=== PATIENT | female | born 1930 | race Caucasian/White ===

== ENCOUNTER 2018-11-11 16:14 | Inpatient (IN) | payer OTHER, MEDICAID ==
[~2018-11-11] VITALS: Ht 162.6 cm; Wt 63.7 kg
[~2018-11-11 16:14] MED LIST: ASPI-1155 PO; FURO-150 PO; L.RH1CAP PO; LIP80 PO; LOSA25TA3 PO; MAGN400C3 PO; MELA3TAB PO; METO-442 PO; ONDA4TAB5 PO; TRAM50TA92 PO
[2018-11-11 16:35] VITALS: BP_SYST 126
[2018-11-11] MEDS ORDERED: VANCOMYCIN HCL 1,000 MG in NS 250 ML IV ONE ×2 (17:00→18:30)
[2018-11-11] MEDS ORDERED: VANCOMYCIN HCL 1000 MG/VIAL IV ONE (17:17)
[2018-11-11 17:36] LABS: ANION GAP 16 (5-15); CALCIUM 9.4 mg/dL (8.4-11.0); CHLORIDE 104 mmol/L (98-107); CREATININE 1.02 mg/dL (0.55-1.30); GLUCOSE 117 mg/dL (70-99); POTASSIUM 4.1 mmol/L (3.5-5.1); SODIUM SERUM 139 mmol/L (136-145); UREA NITROGEN, BLOOD 30 mg/dL (8-21)
[2018-11-11 17:39] LABS: HEMATOCRIT 41.6 % (36-48); HEMOGLOBIN 14.1 g/dL (12.0-16.0); MEAN CORPUSCULAR HEMOGLOBIN 32 pg (27-31); MEAN CORPUSCULAR HGB CONC 34 % (32-36); MEAN CORPUSCULAR VOLUME 94 fL (79.0-98.0); RED BLOOD CELL COUNT(AUTO) 4.45 MIL/uL (4.2-6.2); WHITE BLOOD COUNT (AUTO) 6.4 K/uL (4.8-10.8)
[2018-11-11 17:40] LABS: PLATELET COUNT (AUTO) 96 K/uL (130-430); RED CELL DISTRIBUTION WIDTH 14.2 % (9.0-15.0)
[2018-11-11 17:42] LABS: ALANINE AMINOTRANSFERASE 390 U/L (12-78); ALBUMIN 3.3 g/dL (3.4-4.8); ASPARTATE AMINOTRANSFERASE 498 U/L (10-37); TOTAL BILIRUBIN 1.5 mg/dL (0.0-1.0)
[2018-11-11 17:56] LABS: BAND % (MANUAL) 43 % (0-6); BASOPHILS % (MANUAL) 0 % (0-2); EOSINOPHILS % (MANUAL) 1 % (0-7); LYMPHOCYTES % (MANUAL) 4 % (20-46); MONOCYTES % (MANUAL) 1 % (0-11)
[2018-11-11 17:57] LABS: BILIRUBIN,URINE NEGATIVE (NEGATIVE); BLOOD, URINE 3+ (NEGATIVE); CLARITY/URINE CLOUDY (CLEAR); COLOR,URINE RED (YELLOW); GLUCOSE,URINE NEGATIVE (NEGATIVE); KETONES,URINE NEGATIVE (NEGATIVE); LEUKOCYTE ESTERASE ,URINE TRACE (NEGATIVE); NITRITE, URINE NEGATIVE (NEGATIVE); PH,URINE 8.5 (5.0-8.0); PROTEIN URINE 3+ (NEGATIVE); UROBILINOGEN,URINE 0.2 (0.2-1.0)
[2018-11-11] MEDS ORDERED: GUAI118.5 PO (18:02)
[2018-11-11] MEDS ORDERED: ACET325T53 PO (18:02)
[2018-11-11] MEDS ORDERED: dulcolax supp PR (18:02)
[2018-11-11] MEDS ORDERED: NA P133E41 RC (18:02)
[2018-11-11] MEDS ORDERED: CALC-823 PO (18:02)
[2018-11-11] MEDS ORDERED: ASCO500T20 PO (18:02)
[2018-11-11] MEDS ORDERED: POLY15DR56 OP (18:02)
[2018-11-11] MEDS ORDERED: MULT1CAP34 PO (18:02)
[2018-11-11] MEDS ORDERED: METO25TA6 PO (18:02)
[2018-11-11] MEDS ORDERED: MOM PO (18:02)
[2018-11-11] MEDS ORDERED: FERR325T30 PO (18:02)
[2018-11-11] MEDS ORDERED: DOCU-144 PO (18:02)
[2018-11-11 18:13] LABS: RBC,URINE >100 /HPF (0-3)
[2018-11-11 18:14] LABS: BACTERIA,URINE FEW /HPF (None Seen); MUCUS,URINE None Seen /LPF (None Seen); WBC,URINE 0-3 /HPF (0-3)
[2018-11-11] MEDS ORDERED: NACL 0.9% 1,000 ML IV ONE ×2 (18:30→20:15)
[2018-11-11] MEDS ORDERED: ONDANSETRON HCL 4 MG/2 ML VIAL IVP ONE (18:30)
[2018-11-12] MEDS ORDERED: ONDANSETRON HCL 4 MG/2 ML VIAL IVP ONE
[2018-11-12 00:44] VITALS: BP_SYST 97
[2018-11-12] MEDS: NACL 0.9% 1,000 ML IV SCH ×2 (01:29→10:11)
[2018-11-12] MEDS ORDERED: ACETAMINOPHEN 325 MG TABLET PO PRN (02:00)
[2018-11-12] MEDS: metroNIDAZOLE 500 mg/NS 100 ML IV SCH ×4 (02:19→22:29)
[2018-11-12] MEDS ORDERED: metroNIDAZOLE 500 mg/NS 200 ML IV ONE (02:25)
[2018-11-12 02:45] VITALS: BP_SYST 105
[2018-11-12] MEDS ORDERED: metroNIDAZOLE 500 mg/NS 100 ML IV SCH (06:00)
[2018-11-12 06:22] LABS: ANION GAP 13 (5-15); CALCIUM 7.8 mg/dL (8.4-11.0); CHLORIDE 108 mmol/L (98-107); CREATININE 1.67 mg/dL (0.55-1.30); GLUCOSE 98 mg/dL (70-99); POTASSIUM 3.6 mmol/L (3.5-5.1); SODIUM SERUM 142 mmol/L (136-145); UREA NITROGEN, BLOOD 36 mg/dL (8-21)
[2018-11-12 06:29] LABS: ALANINE AMINOTRANSFERASE 306 U/L (12-78); ALBUMIN 2.4 g/dL (3.4-4.8); ASPARTATE AMINOTRANSFERASE 349 U/L (10-37); TOTAL BILIRUBIN 0.7 mg/dL (0.0-1.0)
[2018-11-12 08:01] LABS: HEMOGLOBIN 10.9 g/dL (12.0-16.0); RED BLOOD CELL COUNT(AUTO) 3.45 MIL/uL (4.2-6.2); WHITE BLOOD COUNT (AUTO) 24.8 K/uL (4.8-10.8)
[2018-11-12 08:03] LABS: BASOPHILS % (AUTO) 0.2 % (0.0-2.0); HEMATOCRIT 32.8 % (36-48); LYMPHOCYTES # (AUTO) 0.5 K/uL (1.0-5.5); LYMPHOCYTES % (AUTO) 2.2 % (20.5-51.5); MEAN CORPUSCULAR HEMOGLOBIN 32 pg (27-31); MEAN CORPUSCULAR HGB CONC 33 % (32-36); MEAN CORPUSCULAR VOLUME 95 fL (79.0-98.0); MONOCYTES # (AUTO) 1.3 K/uL (0.0-1.0); MONOCYTES % (AUTO) 5.2 % (1.7-9.3); NEUTROPHILS # (AUTO) 22.9 K/uL (1.8-7.7); NEUTROPHILS % (AUTO) 92.4 % (40.0-70.0); PLATELET COUNT (AUTO) 75 K/uL (130-430)
[2018-11-12 08:09] VITALS: BP_SYST 97
[2018-11-12] MEDS ORDERED: LEVOFLOXACIN 500 MG/D5W 100 ML IV SCH (09:00)
[2018-11-12] MEDS ORDERED: NACL 0.9% 1,000 ML IV ONE (09:30)
[2018-11-12 09:50] LABS: INR 1.5 (0.8-1.2); PROTHROMBIN TIME 14.7 SECS (9.5-12.5)
[2018-11-12] MEDS ORDERED: MEROPENEM 500 MG in NS 50 ML IV SCH ×2 (11:00→14:00)
[2018-11-12] MEDS ORDERED: MEROPENEM 500 MG in NS 50 ML IV ONE (11:00)
[2018-11-12 12:39] VITALS: BP_SYST 103
[2018-11-12] MEDS: KCL 20 mEq in D5/0.45NS 1000mL 1,000 ML IV SCH (15:24)
[2018-11-12 16:38] VITALS: BP_SYST 132
[2018-11-12] MEDS ORDERED: GLYCOPYRROLATE 0.2 MG/ML VIAL IJ ONE (19:10)
[2018-11-12] MEDS ORDERED: WATER FOR IRRIGATION,STERILE 1,000 ML IRRIG.SOLN IR ONE (19:10)
[2018-11-12] MEDS ORDERED: NS 1000 ML IV.SOLN IV ONE (19:10)
[2018-11-12] MEDS ORDERED: PHENYLEPHRINE HCL 10 MG/ML VIAL (NEOSYNEPHRINE) IV ONE (19:10)
[2018-11-12] MEDS ORDERED: fentaNYL CITRATE/PF 100 MCG/2 ML AMP IVP ONE (19:10)
[2018-11-12] MEDS ORDERED: BUPIVACAINE /EPINEPHRINE/PF 0.25% 30 ML VIAL INJ ONE (19:10)
[2018-11-12] MEDS ORDERED: LABETALOL 100 MG/ 20ML VIAL IVP ONE (19:10)
[2018-11-12] MEDS ORDERED: LR 1,000 ML IV.SOLN IV ONE (19:10)
[2018-11-12] MEDS ORDERED: SEVOFLURANE 15 MIN GAS INH ONE (19:10)
[2018-11-12] MEDS ORDERED: MIDAZOLAM HCL 5 MG/5 ML VIAL IVP ONE (19:10)
[2018-11-12] MEDS ORDERED: PROPOFOL 200MG/ 20ML VIAL (DIPRIVAN) IV ONE (19:10)
[2018-11-12] MEDS ORDERED: ROCURONIUM BROMIDE 10 MG/ML (ZEMURON) IV ONE (19:10)
[2018-11-12 20:00] VITALS: BP_SYST 101
[2018-11-12] MEDS: MEROPENEM 500 MG in NS 50 ML IV SCH (21:01)
[2018-11-13] VITALS (8 sets, daily range): BP systolic 102–156
[2018-11-13] MEDS: KCL 20 mEq in D5/0.45NS 1000mL 1,000 ML IV SCH ×2 (02:52→12:05)
[2018-11-13] MEDS: MEROPENEM 500 MG in NS 50 ML IV SCH ×3 (05:02→22:45)
[2018-11-13] MEDS: metroNIDAZOLE 500 mg/NS 100 ML IV SCH (06:02)
[2018-11-13 07:08] LABS: ALANINE AMINOTRANSFERASE 176 U/L (12-78); ALBUMIN 2.3 g/dL (3.4-4.8); ANION GAP 9 (5-15); CALCIUM 7.5 mg/dL (8.4-11.0); CHLORIDE 109 mmol/L (98-107); CHOLESTEROL 95 mg/dL (<200); CREATININE 1.28 mg/dL (0.55-1.30); GLUCOSE 120 mg/dL (70-99); HDL CHOLESTEROL 28 mg/dL (>55); LDL CHOLESTEROL 43 mg/dL (<100); LIPASE 81 U/L (73-393); POTASSIUM 3.7 mmol/L (3.5-5.1); SODIUM SERUM 139 mmol/L (136-145); THYROID STIMULATING HORMONE 0.35 uIu/mL (0.34-4.82); TOTAL BILIRUBIN 0.6 mg/dL (0.0-1.0); TRIGLYCERIDES 67 mg/dL (30-150); UREA NITROGEN, BLOOD 33 mg/dL (8-21)
[2018-11-13 07:14] LABS: ASPARTATE AMINOTRANSFERASE 166 U/L (10-37)
[2018-11-13 08:09] LABS: WHITE BLOOD COUNT (AUTO) 24.2 K/uL (4.8-10.8)
[2018-11-13 08:10] LABS: BASOPHILS % (AUTO) 0.2 % (0.0-2.0); EOSINOPHILS % (AUTO) 0.4 % (0.0-4.0); HEMATOCRIT 28.9 % (36-48); HEMOGLOBIN 9.7 g/dL (12.0-16.0); LYMPHOCYTES # (AUTO) 0.6 K/uL (1.0-5.5); LYMPHOCYTES % (AUTO) 2.6 % (20.5-51.5); MEAN CORPUSCULAR HEMOGLOBIN 32 pg (27-31); MEAN CORPUSCULAR HGB CONC 34 % (32-36); MEAN CORPUSCULAR VOLUME 95 fL (79.0-98.0); MONOCYTES # (AUTO) 1.2 K/uL (0.0-1.0); MONOCYTES % (AUTO) 4.9 % (1.7-9.3); NEUTROPHILS # (AUTO) 22.2 K/uL (1.8-7.7); PLATELET COUNT (AUTO) 68 K/uL (130-430); RED BLOOD CELL COUNT(AUTO) 3.04 MIL/uL (4.2-6.2)
[2018-11-13 08:11] LABS: EOSINOPHILS # (AUTO) 0.1 K/uL (0.0-0.4)
[2018-11-13 10:44] LABS: NEUTROPHILS % (AUTO) 91.9 % (40.0-70.0)
[2018-11-13] MEDS ORDERED: IOHEXOL 50 ML IV ONE (19:27)
[2018-11-13] MEDS ORDERED: fentaNYL CITRATE/PF 100 MCG/2 ML AMP IVP PRN ×2 (20:45)
[2018-11-13] MEDS ORDERED: ONDANSETRON HCL 4 MG/2 ML VIAL IVP PRN (20:45)
[2018-11-13] MEDS: LR 1,000 ML IV SCH (22:45)
[2018-11-13] MEDS: MORPHINE 4 MG/ML INJ. SYRINGE IVP PRN (23:57)
[2018-11-14] VITALS (18 sets, daily range): BP systolic 95–167
[2018-11-14] MEDS: MEROPENEM 500 MG in NS 50 ML IV SCH ×3 (05:14→23:04)
[2018-11-14 06:43] LABS: ALANINE AMINOTRANSFERASE 135 U/L (12-78); ALBUMIN 2.2 g/dL (3.4-4.8); ANION GAP 7 (5-15); ASPARTATE AMINOTRANSFERASE 106 U/L (10-37); CHLORIDE 110 mmol/L (98-107); CREATININE 1.04 mg/dL (0.55-1.30); GLUCOSE 118 mg/dL (70-99); POTASSIUM 4.5 mmol/L (3.5-5.1); SODIUM SERUM 140 mmol/L (136-145); TOTAL BILIRUBIN 0.4 mg/dL (0.0-1.0); UREA NITROGEN, BLOOD 27 mg/dL (8-21)
[2018-11-14 07:59] LABS: HEMOGLOBIN 9.7 g/dL (12.0-16.0); RED BLOOD CELL COUNT(AUTO) 3.11 MIL/uL (4.2-6.2); WHITE BLOOD COUNT (AUTO) 19.6 K/uL (4.8-10.8)
[2018-11-14 08:00] LABS: HEMATOCRIT 29.7 % (36-48); MEAN CORPUSCULAR HEMOGLOBIN 31 pg (27-31); MEAN CORPUSCULAR HGB CONC 33 % (32-36); MEAN CORPUSCULAR VOLUME 95 fL (79.0-98.0); PLATELET COUNT (AUTO) 80 K/uL (130-430); RED CELL DISTRIBUTION WIDTH 15.3 % (9.0-15.0)
[2018-11-14 08:01] LABS: LYMPHOCYTES % (AUTO) 4.7 % (20.5-51.5)
[2018-11-14 08:02] LABS: BASOPHILS # (AUTO) 0.1 K/uL (0.0-0.2); BASOPHILS % (AUTO) 0.4 % (0.0-2.0); EOSINOPHILS # (AUTO) 0.4 K/uL (0.0-0.4); EOSINOPHILS % (AUTO) 1.8 % (0.0-4.0); LYMPHOCYTES # (AUTO) 0.9 K/uL (1.0-5.5); MONOCYTES # (AUTO) 0.6 K/uL (0.0-1.0); MONOCYTES % (AUTO) 3.1 % (1.7-9.3); NEUTROPHILS # (AUTO) 17.6 K/uL (1.8-7.7)
[2018-11-14] MEDS ORDERED: METOPROLOL TARTRATE 25 MG TABLET PO SCH ×2 (09:00→21:00)
[2018-11-14] MEDS ORDERED: METOPROLOL TARTRATE 25 MG TABLET PO ONE (09:15)
[2018-11-14] MEDS: MORPHINE 4 MG/ML INJ. SYRINGE IVP PRN ×3 (09:33→20:21)
[2018-11-14] MEDS: LR 1,000 ML IV SCH (12:01)
[2018-11-14] MEDS: METOPROLOL TARTRATE 25 MG TABLET PO SCH (20:32)
[2018-11-15] VITALS (7 sets, daily range): BP systolic 127–159
[2018-11-15] MEDS: LR 1,000 ML IV SCH ×2 (01:22→18:46)
[2018-11-15] MEDS: MORPHINE 4 MG/ML INJ. SYRINGE IVP PRN (01:23)
[2018-11-15] MEDS: MEROPENEM 500 MG in NS 50 ML IV SCH ×4 (05:22→21:35)
[2018-11-15 08:29] LABS: ALANINE AMINOTRANSFERASE 108 U/L (12-78); ALBUMIN 2.2 g/dL (3.4-4.8); ANION GAP 7 (5-15); ASPARTATE AMINOTRANSFERASE 59 U/L (10-37); CALCIUM 7.9 mg/dL (8.4-11.0); CHLORIDE 107 mmol/L (98-107); CREATININE 0.75 mg/dL (0.55-1.30); GLUCOSE 84 mg/dL (70-99); POTASSIUM 4.3 mmol/L (3.5-5.1); SODIUM SERUM 136 mmol/L (136-145); TOTAL BILIRUBIN 0.6 mg/dL (0.0-1.0); UREA NITROGEN, BLOOD 25 mg/dL (8-21)
[2018-11-15 08:36] LABS: HEMATOCRIT 32.2 % (36-48); HEMOGLOBIN 10.6 g/dL (12.0-16.0); MEAN CORPUSCULAR VOLUME 95 fL (79.0-98.0); WHITE BLOOD COUNT (AUTO) 12.2 K/uL (4.8-10.8)
[2018-11-15 08:37] LABS: MEAN CORPUSCULAR HEMOGLOBIN 31 pg (27-31); MEAN CORPUSCULAR HGB CONC 33 % (32-36); PLATELET COUNT (AUTO) 105 K/uL (130-430); RED CELL DISTRIBUTION WIDTH 14.6 % (9.0-15.0)
[2018-11-15 08:38] LABS: BASOPHILS # (AUTO) 0.1 K/uL (0.0-0.2); BASOPHILS % (AUTO) 0.5 % (0.0-2.0); EOSINOPHILS # (AUTO) 0.6 K/uL (0.0-0.4); EOSINOPHILS % (AUTO) 4.7 % (0.0-4.0); LYMPHOCYTES # (AUTO) 0.9 K/uL (1.0-5.5); LYMPHOCYTES % (AUTO) 7.4 % (20.5-51.5); MONOCYTES # (AUTO) 0.5 K/uL (0.0-1.0); MONOCYTES % (AUTO) 4.2 % (1.7-9.3); NEUTROPHILS # (AUTO) 10.1 K/uL (1.8-7.7)
[2018-11-15 08:39] LABS: NEUTROPHILS % (AUTO) 83.2 % (40.0-70.0)
[2018-11-15] MEDS: METOPROLOL TARTRATE 25 MG TABLET PO SCH ×2 (08:46→20:06)
[2018-11-16] MEDS: MEROPENEM 500 MG in NS 50 ML IV SCH ×2 (05:25→14:48)
[2018-11-16] MEDS: LR 1,000 ML IV SCH ×2 (05:26→12:15)
[2018-11-16 08:00] VITALS: BP_SYST 125
[2018-11-16] MEDS: METOPROLOL TARTRATE 25 MG TABLET PO SCH (08:15)
[2018-11-16 11:46] VITALS: BP_SYST 125
[2018-11-16 12:23] VITALS: BP_SYST 155
[2018-11-16 16:17] VITALS: BP_SYST 148
[2018-11-16 17:06] VITALS: BP_SYST 148
== END 2018-11-16 18:40 | DRG 853 ==
LOC: SED 16:14 → STU 11-12 00:13 → SIC 11-13 21:34 → SMU 11-14 17:01 → STU 11-14 17:38
PROVIDERS: ADMIT Internal Medicine; ATTEND Internal Medicine
PROC: 0FT44ZZ Resection of Gallbladder, Percutaneous Endoscopic Approach (ICD-10-PCS; principal; 2018-11-13 19:00)
DX: A41.9 Sepsis, unspecified organism (principal); E43 Unspecified severe protein-calorie malnutrition; G93.41 Metabolic encephalopathy; E87.2 Acidosis; K80.00 Calculus of gallbladder with acute cholecystitis without obstruction; N13.6 Pyonephrosis; N17.9 Acute kidney failure, unspecified; D64.9 Anemia, unspecified; D69.6 Thrombocytopenia, unspecified; E78.5 Hyperlipidemia, unspecified; Z96.641 Presence of right artificial hip joint; M19.90 Unspecified osteoarthritis, unspecified site; F03.90 Unspecified dementia, unspecified severity, without behavioral disturbance, psychotic disturbance, mood disturbance, and anxiety; I11.9 Hypertensive heart disease without heart failure; B96.4 Proteus (mirabilis) (morganii) as the cause of diseases classified elsewhere; I48.0 Paroxysmal atrial fibrillation; R65.20 Severe sepsis without septic shock; Z85.828 Personal history of other malignant neoplasm of skin; Z86.73 Personal history of transient ischemic attack (TIA), and cerebral infarction without residual deficits; Z87.891 Personal history of nicotine dependence; Z88.0 Allergy status to penicillin; Z68.24 Body mass index [BMI] 24.0-24.9, adult; Z88.1 Allergy status to other antibiotic agents; Z88.2 Allergy status to sulfonamides; Z88.8 Allergy status to other drugs, medicaments and biological substances; Z79.82 Long term (current) use of aspirin; Z79.899 Other long term (current) drug therapy
CPT/HCPCS: 36415; 71045; 76000; 76700-TC; 78226; 80053; 80061; 81000-TC; 83605; 83690-TC; 83880; 84443-TC; 85007; 85025; 85027; 85610-TC; 87040-TC; 87081; 87086; 87186-TC; 88304; 93005; 93306; 96365; 96366; 96367; 96375; 96376; 97110-GP; 97116-GP; 97530-GP; 99291; A9537; C1727; G0378; J1956; J2185; J2250; J2270; J2370; J2405; J2704; J3010; J3370; J3490; J7030; J7120; Q9967

== ENCOUNTER 2018-11-18 19:54 | Observation (INO) | payer OTHER, MEDICAID ==
[~2018-11-18] VITALS: Ht 162.6 cm; Wt 61.2 kg
[~2018-11-18 19:54] MED LIST changes: +ACET325T53 PO; +ASCO500T20 PO; +CALC-823 PO; +DOCU-144 PO; +FERR325T30 PO; +GUAI118.5 PO; -METO-442 PO; +METO25TA6 PO; +MOM PO; +MULT1CAP34 PO; +NA P133E41 RC; +POLY15DR56 OP; -TRAM50TA92 PO; +dulcolax supp PR
[2018-11-18 20:09] VITALS: BP_SYST 157
[2018-11-18 20:55] LABS: ANION GAP 3 (5-15); CALCIUM 8.1 mg/dL (8.4-11.0); CHLORIDE 106 mmol/L (98-107); CREATININE 0.82 mg/dL (0.55-1.30); GLUCOSE 137 mg/dL (70-99); POTASSIUM 3.2 mmol/L (3.5-5.1); SODIUM SERUM 139 mmol/L (136-145); UREA NITROGEN, BLOOD 16 mg/dL (8-21)
[2018-11-18 20:59] LABS: ALANINE AMINOTRANSFERASE 44 U/L (12-78); ALBUMIN 2.3 g/dL (3.4-4.8); ASPARTATE AMINOTRANSFERASE 27 U/L (10-37); TOTAL BILIRUBIN 0.8 mg/dL (0.0-1.0)
[2018-11-18 21:02] LABS: HEMATOCRIT 32.9 % (36-48); HEMOGLOBIN 11.1 g/dL (12.0-16.0); MEAN CORPUSCULAR VOLUME 94 fL (79.0-98.0); RED BLOOD CELL COUNT(AUTO) 3.48 MIL/uL (4.2-6.2); WHITE BLOOD COUNT (AUTO) 9.1 K/uL (4.8-10.8)
[2018-11-18 21:03] LABS: BASOPHILS % (AUTO) 0.6 % (0.0-2.0); EOSINOPHILS # (AUTO) 0.7 K/uL (0.0-0.4); EOSINOPHILS % (AUTO) 8.2 % (0.0-4.0); LYMPHOCYTES # (AUTO) 1.2 K/uL (1.0-5.5); LYMPHOCYTES % (AUTO) 13.5 % (20.5-51.5); MEAN CORPUSCULAR HEMOGLOBIN 32 pg (27-31); MEAN CORPUSCULAR HGB CONC 34 % (32-36); MONOCYTES # (AUTO) 0.9 K/uL (0.0-1.0); MONOCYTES % (AUTO) 10.1 % (1.7-9.3); NEUTROPHILS # (AUTO) 6.1 K/uL (1.8-7.7); NEUTROPHILS % (AUTO) 67.6 % (40.0-70.0); PLATELET COUNT (AUTO) 173 K/uL (130-430); RED CELL DISTRIBUTION WIDTH 14.9 % (9.0-15.0)
[2018-11-18 21:06] LABS: BILIRUBIN,URINE NEGATIVE (NEGATIVE); BLOOD, URINE 1+ (NEGATIVE); CLARITY/URINE CLEAR (CLEAR); COLOR,URINE YELLOW (YELLOW); GLUCOSE,URINE NEGATIVE (NEGATIVE); KETONES,URINE NEGATIVE (NEGATIVE); LEUKOCYTE ESTERASE ,URINE NEGATIVE (NEGATIVE); NITRITE, URINE NEGATIVE (NEGATIVE); PH,URINE 5.5 (5.0-8.0); PROTEIN URINE NEGATIVE (NEGATIVE); UROBILINOGEN,URINE 0.2 (0.2-1.0)
[2018-11-18 21:06] LABS: BASOPHILS # (AUTO) 0.1 K/uL (0.0-0.2)
[2018-11-18 21:12] LABS: BACTERIA,URINE FEW /HPF (None Seen); WBC,URINE 0-3 /HPF (0-3)
[2018-11-18 23:04] VITALS: BP_SYST 182
[2018-11-18 23:18] VITALS: BP_SYST 181
[2018-11-19] VITALS: BP_SYST 160
[2018-11-19 08:00] VITALS: BP_SYST 150
[2018-11-19] MEDS ORDERED: LOSARTAN POTASSIUM 25 MG TABLET PO ONE (10:00)
[2018-11-19] MEDS ORDERED: POTASSIUM CHLORIDE 20 MEQ TAB.PRT.SR PO ONE (10:00)
[2018-11-19] MEDS ORDERED: FUROSEMIDE 20 MG TABLET PO ONE (10:00)
[2018-11-19] MEDS ORDERED: ONDANSETRON 4 MG ODT TAB PO PRN (10:00)
[2018-11-19 10:35] LABS: ALANINE AMINOTRANSFERASE 42 U/L (12-78); ALBUMIN 2.4 g/dL (3.4-4.8); ANION GAP 4 (5-15); ASPARTATE AMINOTRANSFERASE 26 U/L (10-37); CALCIUM 8.2 mg/dL (8.4-11.0); CHLORIDE 103 mmol/L (98-107); CREATININE 0.71 mg/dL (0.55-1.30); GLUCOSE 108 mg/dL (70-99); POTASSIUM 3.5 mmol/L (3.5-5.1); SODIUM SERUM 138 mmol/L (136-145); UREA NITROGEN, BLOOD 14 mg/dL (8-21)
[2018-11-19 12:00] VITALS: BP_SYST 162; BP_SYST 185
[2018-11-19] MEDS ORDERED: DOCUSATE SODIUM 250 MG CAPSULE PO ONE (13:45)
[2018-11-19] MEDS ORDERED: MILK OF MAGNESIA 30 ML UDC PO PRN (13:45)
[2018-11-19] MEDS: MILK OF MAGNESIA 30 ML UDC PO ONE ×2 (13:57→14:30)
[2018-11-19] MEDS ORDERED: NA PHOS,M-B/NA PHOS,DI-BA 118 ML (FLEET ENEMA) RC ONE (14:00)
[2018-11-19 16:55] VITALS: BP_SYST 178
[2018-11-19] MEDS ORDERED: cloNIDine HCL 0.1 MG TABLET PO PRN (18:00)
[2018-11-19] MEDS ORDERED: cloNIDine HCL 0.1 MG TABLET ONE (18:24)
[2018-11-19] MEDS: DOCUSATE SODIUM 250 MG CAPSULE PO SCH (20:24)
[2018-11-19 20:39] VITALS: BP_SYST 164
[2018-11-19] MEDS ORDERED: PEG 400/HYPROMELLOSE/GLYCERIN 15 ML DROPS OP SCH (21:00)
[2018-11-19] MEDS ORDERED: METOPROLOL TARTRATE 25 MG TABLET PO SCH (21:00)
[2018-11-19] MEDS ORDERED: ATORVASTATIN 20 MG TABLET PO SCH (21:00)
[2018-11-19] MEDS ORDERED: NON-FORMULARY MEDICATION (Melatonin 1 TAB) PO SCH (21:00)
[2018-11-19] MEDS ORDERED: SENNOSIDES 8.6 MG TABLET PO SCH (21:00)
[2018-11-20 07:44] VITALS: BP_SYST 172
[2018-11-20] MEDS ORDERED: FUROSEMIDE 20 MG TABLET PO SCH (09:00)
[2018-11-20] MEDS ORDERED: FERROUS SULFATE 325 MG TABLET.DR PO SCH (09:00)
[2018-11-20] MEDS: DOCUSATE SODIUM 250 MG CAPSULE PO SCH (09:00)
[2018-11-20] MEDS ORDERED: LACTOBACILLUS RHAMNOSUS GG 1 CAP CAPSULE PO SCH (09:00)
[2018-11-20] MEDS ORDERED: MAGNESIUM OXIDE 400 MG TABLET PO SCH (09:00)
[2018-11-20] MEDS ORDERED: LOSARTAN POTASSIUM 25 MG TABLET PO SCH (09:00)
[2018-11-20 12:15] VITALS: BP_SYST 164
[2018-11-20 12:44] VITALS: BP_SYST 164
== END 2018-11-20 13:15 ==
LOC: SED 19:54 → SMU 22:18
PROVIDERS: ADMIT Family Medicine; ATTEND Family Medicine
DX: R41.82 Altered mental status, unspecified (principal); F03.90 Unspecified dementia, unspecified severity, without behavioral disturbance, psychotic disturbance, mood disturbance, and anxiety; I11.0 Hypertensive heart disease with heart failure; I50.9 Heart failure, unspecified; Z86.73 Personal history of transient ischemic attack (TIA), and cerebral infarction without residual deficits; Z90.49 Acquired absence of other specified parts of digestive tract; M19.90 Unspecified osteoarthritis, unspecified site; E43 Unspecified severe protein-calorie malnutrition; D64.9 Anemia, unspecified
CPT/HCPCS: 36415 ×2; 70450; 71045; 74018; 80053 ×2; 81000; 83605; 83880; 84484; 85025; 87040; 87081; 87086; 93005; 97116; 97162; 99285; G0378 ×3

== ENCOUNTER 2018-11-24 03:38 | Inpatient (IN) | payer OTHER, MEDICAID ==
[2018-11-24] VITALS (7 sets, daily range): BP systolic 125–149
[~2018-11-24] VITALS: Ht 162.6 cm; Wt 60.8 kg
[~2018-11-24 03:38] MED LIST changes: -ACET325T53 PO; -ASCO500T20 PO; -ASPI-1155 PO; -CALC-823 PO; -DOCU-144 PO; -GUAI118.5 PO; -MOM PO; -MULT1CAP34 PO; -NA P133E41 RC; -dulcolax supp PR
[2018-11-24 04:33] LABS: BASOPHILS % (AUTO) 0.5 % (0.0-2.0); EOSINOPHILS # (AUTO) 0.4 K/uL (0.0-0.4); EOSINOPHILS % (AUTO) 6.9 % (0.0-4.0); HEMATOCRIT 32.8 % (36-48); HEMOGLOBIN 10.8 g/dL (12.0-16.0); LYMPHOCYTES # (AUTO) 1.5 K/uL (1.0-5.5); LYMPHOCYTES % (AUTO) 23.2 % (20.5-51.5); MEAN CORPUSCULAR HEMOGLOBIN 31 pg (27-31); MEAN CORPUSCULAR HGB CONC 33 % (32-36); MEAN CORPUSCULAR VOLUME 95 fL (79.0-98.0); MONOCYTES # (AUTO) 0.6 K/uL (0.0-1.0); MONOCYTES % (AUTO) 10.2 % (1.7-9.3); NEUTROPHILS # (AUTO) 3.7 K/uL (1.8-7.7); NEUTROPHILS % (AUTO) 59.2 % (40.0-70.0); PLATELET COUNT (AUTO) 195 K/uL (130-430); RED BLOOD CELL COUNT(AUTO) 3.47 MIL/uL (4.2-6.2); RED CELL DISTRIBUTION WIDTH 15.4 % (9.0-15.0); WHITE BLOOD COUNT (AUTO) 6.3 K/uL (4.8-10.8)
[2018-11-24 04:46] LABS: ANION GAP 7 (5-15); CALCIUM 8.3 mg/dL (8.4-11.0); CHLORIDE 103 mmol/L (98-107); CREATININE 0.93 mg/dL (0.55-1.30); GLUCOSE 120 mg/dL (70-99); SODIUM SERUM 139 mmol/L (136-145); UREA NITROGEN, BLOOD 30 mg/dL (8-21)
[2018-11-24 04:47] LABS: PROTHROMBIN TIME 10.4 SECS (9.5-12.5)
[2018-11-24 04:51] LABS: ALANINE AMINOTRANSFERASE 31 U/L (12-78); ALBUMIN 2.8 g/dL (3.4-4.8); ASPARTATE AMINOTRANSFERASE 37 U/L (10-37); TOTAL BILIRUBIN 0.7 mg/dL (0.0-1.0)
[2018-11-24 07:49] LABS: BILIRUBIN,URINE NEGATIVE (NEGATIVE); COLOR,URINE YELLOW (YELLOW); GLUCOSE,URINE NEGATIVE (NEGATIVE); KETONES,URINE NEGATIVE (NEGATIVE); LEUKOCYTE ESTERASE ,URINE 3+ (NEGATIVE); NITRITE, URINE NEGATIVE (NEGATIVE); PH,URINE 5.5 (5.0-8.0); PROTEIN URINE 1+ (NEGATIVE); UROBILINOGEN,URINE 0.2 (0.2-1.0)
[2018-11-24 07:50] LABS: BLOOD, URINE TRACE (NEGATIVE); CLARITY/URINE HAZY (CLEAR)
[2018-11-24 08:21] LABS: BACTERIA,URINE FEW /HPF (None Seen); MUCUS,URINE 1+ /LPF (None Seen); RBC,URINE 0-3 /HPF (0-3); WBC,URINE 20-50 /HPF (0-3)
[2018-11-24] MEDS ORDERED: ONDANSETRON 4 MG ODT TAB PO PRN (08:30)
[2018-11-24] MEDS: LOSARTAN POTASSIUM 25 MG TABLET PO SCH (08:56)
[2018-11-24] MEDS: AMIODARONE HCL 200 MG TABLET PO SCH ×2 (08:57→20:40)
[2018-11-24] MEDS: FUROSEMIDE 20 MG TABLET PO SCH (08:57)
[2018-11-24] MEDS: ASPIRIN 81 MG TAB.CHEW PO SCH (08:57)
[2018-11-24] MEDS ORDERED: POTASSIUM CHLORIDE 20 MEQ TAB.PRT.SR PO ONE (09:00)
[2018-11-24] MEDS ORDERED: LEVOFLOXACIN 250 MG TABLET PO ONE (12:45)
[2018-11-24] MEDS ORDERED: guaiFENesin 200 MG/10 ML UDC PO PRN (18:30)
[2018-11-24] MEDS: LevALBUTEROL HCL 1.25 MG/0.5 ML *CONC.* VIAL.NEB (XOPENEX CONC.) INH SCH (19:54)
[2018-11-24] MEDS: PEG 400/HYPROMELLOSE/GLYCERIN 15 ML DROPS OP SCH (20:38)
[2018-11-24] MEDS: ATORVASTATIN 20 MG TABLET PO SCH (20:39)
[2018-11-24] MEDS: METOPROLOL TARTRATE 25 MG TABLET PO SCH (20:40)
[2018-11-25 00:29] VITALS: BP_SYST 142
[2018-11-25] MEDS: LevALBUTEROL HCL 1.25 MG/0.5 ML *CONC.* VIAL.NEB (XOPENEX CONC.) INH SCH ×4 (01:19→19:56)
[2018-11-25 06:44] LABS: BASOPHILS # (AUTO) 0.1 K/uL (0.0-0.2); BASOPHILS % (AUTO) 0.6 % (0.0-2.0); EOSINOPHILS # (AUTO) 0.4 K/uL (0.0-0.4); EOSINOPHILS % (AUTO) 5.1 % (0.0-4.0); HEMATOCRIT 33.1 % (36-48); HEMOGLOBIN 10.9 g/dL (12.0-16.0); LYMPHOCYTES % (AUTO) 11.9 % (20.5-51.5); MEAN CORPUSCULAR HEMOGLOBIN 31 pg (27-31); MEAN CORPUSCULAR HGB CONC 33 % (32-36); MEAN CORPUSCULAR VOLUME 95 fL (79.0-98.0); MONOCYTES # (AUTO) 0.7 K/uL (0.0-1.0); MONOCYTES % (AUTO) 8.2 % (1.7-9.3); NEUTROPHILS # (AUTO) 6.1 K/uL (1.8-7.7); NEUTROPHILS % (AUTO) 74.2 % (40.0-70.0); PLATELET COUNT (AUTO) 195 K/uL (130-430); RED BLOOD CELL COUNT(AUTO) 3.47 MIL/uL (4.2-6.2); RED CELL DISTRIBUTION WIDTH 15.4 % (9.0-15.0); WHITE BLOOD COUNT (AUTO) 8.2 K/uL (4.8-10.8)
[2018-11-25 06:58] LABS: ALANINE AMINOTRANSFERASE 28 U/L (12-78); ALBUMIN 2.7 g/dL (3.4-4.8); ANION GAP 5 (5-15); ASPARTATE AMINOTRANSFERASE 31 U/L (10-37); CALCIUM 8.5 mg/dL (8.4-11.0); CHLORIDE 104 mmol/L (98-107); CREATININE 0.78 mg/dL (0.55-1.30); GLUCOSE 109 mg/dL (70-99); POTASSIUM 3.7 mmol/L (3.5-5.1); SODIUM SERUM 139 mmol/L (136-145); THYROID STIMULATING HORMONE 0.13 uIu/mL (0.34-4.82); TOTAL BILIRUBIN 0.9 mg/dL (0.0-1.0); UREA NITROGEN, BLOOD 21 mg/dL (8-21)
[2018-11-25 07:48] VITALS: BP_SYST 159
[2018-11-25] MEDS: LOSARTAN POTASSIUM 25 MG TABLET PO SCH (08:13)
[2018-11-25] MEDS: AMIODARONE HCL 200 MG TABLET PO SCH ×2 (08:13→21:05)
[2018-11-25] MEDS: FUROSEMIDE 20 MG TABLET PO SCH (08:14)
[2018-11-25] MEDS: ASPIRIN 81 MG TAB.CHEW PO SCH (08:14)
[2018-11-25] MEDS: LEVOFLOXACIN 250 MG TABLET PO SCH (10:24)
[2018-11-25 12:27] VITALS: BP_SYST 107; BP_SYST 169
[2018-11-25 16:31] VITALS: BP_SYST 133
[2018-11-25 20:15] VITALS: BP_SYST 143
[2018-11-25] MEDS: PEG 400/HYPROMELLOSE/GLYCERIN 15 ML DROPS OP SCH (20:54)
[2018-11-25] MEDS: METOPROLOL TARTRATE 25 MG TABLET PO SCH (20:56)
[2018-11-25] MEDS: ATORVASTATIN 20 MG TABLET PO SCH (20:56)
[2018-11-26] MEDS: LevALBUTEROL HCL 1.25 MG/0.5 ML *CONC.* VIAL.NEB (XOPENEX CONC.) INH SCH ×4 (01:00→20:08)
[2018-11-26 03:23] VITALS: BP_SYST 123
[2018-11-26 07:00] LABS: FREE T4 (FREE THYROXINE) 1.6 ng/dl (0.8-1.5); THYROID STIMULATING HORMONE 0.18 uIu/mL (0.36-3.74)
[2018-11-26 08:15] VITALS: BP_SYST 180
[2018-11-26] MEDS: LOSARTAN POTASSIUM 25 MG TABLET PO SCH (08:20)
[2018-11-26] MEDS: ASPIRIN 81 MG TAB.CHEW PO SCH (08:20)
[2018-11-26] MEDS: FUROSEMIDE 20 MG TABLET PO SCH (08:21)
[2018-11-26] MEDS: AMIODARONE HCL 200 MG TABLET PO SCH (08:21)
[2018-11-26] MEDS: LEVOFLOXACIN 250 MG TABLET PO SCH (09:51)
[2018-11-26 11:16] VITALS: BP_SYST 147
[2018-11-26 15:27] VITALS: BP_SYST 147
[2018-11-26 15:35] VITALS: BP_SYST 147
[2018-11-26] MEDS ORDERED: LevALBUTEROL HCL 1.25 MG/0.5 ML *CONC.* VIAL.NEB (XOPENEX CONC.) INH ONE (20:00)
[2018-11-26 22:34] VITALS: BP_SYST 153
[2018-11-26] MEDS: ATORVASTATIN 20 MG TABLET PO SCH (22:40)
[2018-11-26] MEDS: guaiFENesin ER 600 MG TAB PO SCH (22:40)
[2018-11-26] MEDS: METOPROLOL TARTRATE 25 MG TABLET PO SCH (22:41)
[2018-11-26] MEDS: PEG 400/HYPROMELLOSE/GLYCERIN 15 ML DROPS OP SCH (22:42)
[2018-11-27 00:24] VITALS: BP_SYST 149
[2018-11-27] MEDS: LevALBUTEROL HCL 1.25 MG/0.5 ML *CONC.* VIAL.NEB (XOPENEX CONC.) INH SCH ×5 (00:54→15:11)
[2018-11-27 06:41] LABS: ANION GAP 6 (5-15); CALCIUM 8.2 mg/dL (8.4-11.0); CHLORIDE 104 mmol/L (98-107); CREATININE 0.67 mg/dL (0.55-1.30); GLUCOSE 102 mg/dL (70-99); POTASSIUM 3.8 mmol/L (3.5-5.1); SODIUM SERUM 139 mmol/L (136-145); UREA NITROGEN, BLOOD 14 mg/dL (8-21)
[2018-11-27 07:12] LABS: BASOPHILS # (AUTO) 0.1 K/uL (0.0-0.2); BASOPHILS % (AUTO) 1.5 % (0.0-2.0); EOSINOPHILS # (AUTO) 0.6 K/uL (0.0-0.4); EOSINOPHILS % (AUTO) 8.7 % (0.0-4.0); HEMATOCRIT 32.7 % (36-48); HEMOGLOBIN 10.8 g/dL (12.0-16.0); LYMPHOCYTES % (AUTO) 16.2 % (20.5-51.5); MEAN CORPUSCULAR HEMOGLOBIN 31 pg (27-31); MEAN CORPUSCULAR HGB CONC 33 % (32-36); MEAN CORPUSCULAR VOLUME 94 fL (79.0-98.0); MONOCYTES # (AUTO) 0.7 K/uL (0.0-1.0); MONOCYTES % (AUTO) 10.8 % (1.7-9.3); NEUTROPHILS % (AUTO) 62.8 % (40.0-70.0); PLATELET COUNT (AUTO) 182 K/uL (130-430); RED BLOOD CELL COUNT(AUTO) 3.47 MIL/uL (4.2-6.2); RED CELL DISTRIBUTION WIDTH 15.3 % (9.0-15.0); WHITE BLOOD COUNT (AUTO) 6.4 K/uL (4.8-10.8)
[2018-11-27 07:57] VITALS: BP_SYST 164
[2018-11-27] MEDS ORDERED: AMIODARONE HCL 200 MG TABLET PO SCH (09:00)
[2018-11-27] MEDS ORDERED: LOSARTAN POTASSIUM 50 MG TABLET (COZAAR) PO SCH (09:00)
[2018-11-27] MEDS: ASPIRIN 81 MG TAB.CHEW PO SCH (09:01)
[2018-11-27] MEDS: guaiFENesin ER 600 MG TAB PO SCH (09:02)
[2018-11-27] MEDS: FUROSEMIDE 20 MG TABLET PO SCH (09:02)
[2018-11-27] MEDS: LEVOFLOXACIN 250 MG TABLET PO SCH (09:02)
[2018-11-27 11:47] VITALS: BP_SYST 120
[2018-11-27 14:11] VITALS: BP_SYST 120
== END 2018-11-27 15:40 | DRG 280 ==
LOC: SED 03:38 → STU 07:01
PROVIDERS: ADMIT Internal Medicine; ATTEND Internal Medicine
DX: I21.A1 Myocardial infarction type 2 (principal); E43 Unspecified severe protein-calorie malnutrition; N39.0 Urinary tract infection, site not specified; R07.89 Other chest pain; D64.9 Anemia, unspecified; B18.2 Chronic viral hepatitis C; E78.5 Hyperlipidemia, unspecified; F03.90 Unspecified dementia, unspecified severity, without behavioral disturbance, psychotic disturbance, mood disturbance, and anxiety; I48.0 Paroxysmal atrial fibrillation; M19.90 Unspecified osteoarthritis, unspecified site; E11.9 Type 2 diabetes mellitus without complications; I50.9 Heart failure, unspecified; I11.0 Hypertensive heart disease with heart failure; Z96.641 Presence of right artificial hip joint; Z79.899 Other long term (current) drug therapy; Z85.828 Personal history of other malignant neoplasm of skin; Z86.73 Personal history of transient ischemic attack (TIA), and cerebral infarction without residual deficits; Z87.891 Personal history of nicotine dependence; Z88.1 Allergy status to other antibiotic agents; Z88.2 Allergy status to sulfonamides; Z88.8 Allergy status to other drugs, medicaments and biological substances; Z68.23 Body mass index [BMI] 23.0-23.9, adult; Z90.49 Acquired absence of other specified parts of digestive tract
CPT/HCPCS: 36415; 71045; 80048; 80053; 81000-TC; 82550-TC; 83735-TC; 83880; 84439; 84443-TC; 84484; 85025; 85379; 85610-TC; 87081; 93005; 94640; 94760; 97110-GP; 97116-GP; 97530-GP; 99285; G0378; J7612; Q0162